=== PATIENT | male | born 1960 | race Caucasian/White ===

== ENCOUNTER 2016-08-27 04:12 | Day surgery (SDC) | payer BC ==
[2016-08-21 17:45] LABS: HEMATOCRIT 42.8 % (40.0-51.0); HEMOGLOBIN 14.4 g/dL (13.6-17.8)
[2016-08-21 17:59] LABS: BUN (BLOOD UREA NITROGEN) 14 MG/DL (6-23); CHLORIDE, SERUM 101 MMOL/L (96-112); GFR AFRICAN AMERICAN 96 ML/MIN (>=60); GFR NON AFRICAN AMERICAN 83 ML/MIN (>=60); POTASSIUM, SERUM 4.4 MMOL/L (3.5-5.3); SODIUM, SERUM 140 MMOL/L (135-148)
[2016-08-21 18:00] LABS: CO2 (CARBON DIOXIDE) 31 MMOL/L (24-34); GLUCOSE, SERUM 75 MG/DL (60-99)
--- NOTE | ~2016-08-27 | OP ---
Record Of Operation [facility] [address] [place]. [address] NAME: VINICIUS NICOLE JR : 58 STATUS : REG [facility] PAT#: [id number] AGE: 56 ADM/REG DATE : 08/27/16 MR#: [id number] REPORT SERV DATE: 08/27/16 DICTATED BY: BASIL RAMOS DATE: 08/27/16 REPORT STATUS : Draft TRANSCRIBED BY: MODL DATE: 08/27/16 DATE OF PROCEDURE: 08/27/2016 PREOPERATIVE DIAGNOSIS: Left medial meniscus re-tear with early degenerative joint disease. POSTOPERATIVE DIAGNOSIS: Left medial meniscus re-tear with early degenerative joint disease, full-thickness chondral defect of tibia and synovitis. PROCEDURE: Left partial medial meniscectomy, chondroplasty of trochlea, synovectomy and chondroplasty of the tibia. SURGEON: Basil Ramos M.D. COMPLICATIONS: None. ANESTHESIA: General endotracheal. INDICATIONS: This 56-year-old male, presented with acute mechanical worsening of medial joint line symptoms. He was found have a displaced meniscal fragment by MRI. He did have a previous meniscectomy. He was of obvious concern for worsening DJD, especially with his size of 270 pounds and some joint space loss. We discussed the risks of that in addition to medical risks of operative and nonoperative treatment. He wished to proceed with operative intervention after discussion of above. DESCRIPTION OF PROCEDURE: The patient was induced in a supine position. Left lower extremity was prepped and draped in a standard surgical fashion. A time-out protocol was enforced. Ancef was administered. Anterolateral portal was created for diagnostic arthroscopy, which revealed full-thickness chondral defect or near full thickness grade 3 chondral loss of 3 x 2 cm area of the trochlea. Medial and lateral gutters were normal. The synovitis of the gutters was copious and debrided. There was some brackish fluid which was extirpated from the knee. ACL and PCL were normal. Mild chondromalacia of the lateral compartment negative for meniscus tear. Medial compartment demonstrated a small full-thickness area of chondral loss on the medial tibia. There was some unstable meniscal body tear. The femoral side was reasonably well preserved. Accessory medial portal was created. The fat pad was taken down. We went up into extension and performed a chondroplasty of the trochlea. There were several unstable flaps which were trimmed to a stable margin. We debrided the synovitis of the anterior knee and of the gutters. We then went down into the medial compartment. A valgus stress was applied. We debrided the meniscus. With shaver and biters, we were able to trim the meniscus back to a stable margin. We performed a chondroplasty on the tibial side and on the femoral side of the lesion. The scope was withdrawn. Portals were closed with Monocryl, Steri-Strips were Record Of Operation [address] [address] NAME: VINICIUS NICOLE JR : 58 STATUS : REG [facility] PAT#: [id number] AGE: 56 ADM/REG DATE : 08/27/16 MR#: [id number] REPORT SERV DATE: 08/27/16 DICTATED BY: BASIL RAMOS. DATE: 08/27/16 REPORT STATUS : Draft TRANSCRIBED BY: MODL DATE: 08/27/16 applied. The patient tolerated the procedure well and was taken to PACU in stable condition. POSTOPERATIVE PLAN: Partial weightbearing for 2 weeks. Lovenox in PACU. Resume anticoagulation. Transition to weightbearing around two weeks. BSS/MODL Basil Ramos M.D. / [id number] CC: Gary Schafer Paul E
[~2016-08-27 04:12] MED LIST: ANTIBIOTIC CREAM TOP; BACDS PO; CARDIZEM; CORDARONE PO; COREG6 PO; CYANO1000T PO; DIOVAN HCT320 MG/25 PO; FLOMAX4 PO; FOLIC PO; GLUCPH PO; K500 PO; LIPITOR20 PO; MAXIMUM D3 PO; PHENTERMINE37.5 M1 PO; SILVADENE1 % TOP; TESTOST CYP200 MG/ML IM; XARELTO20 MG PO
== END 2016-08-27 17:41 | disposition home or self-care (01) ==
LOC: SDC 04:12
PROVIDERS: Orthopaedic Surgery Sports Medicine
PROC: 0SBD4ZZ Excision of Left Knee Joint, Percutaneous Endoscopic Approach (ICD-10-PCS; principal; 2016-08-27 05:45)
DX: S83.232A Complex tear of medial meniscus, current injury, left knee, initial encounter (principal); M17.12 Unilateral primary osteoarthritis, left knee; I48.91 Unspecified atrial fibrillation; Z79.01 Long term (current) use of anticoagulants; I10 Essential (primary) hypertension; G47.33 Obstructive sleep apnea (adult) (pediatric); Z86.718 Personal history of other venous thrombosis and embolism; Z86.711 Personal history of pulmonary embolism; G62.9 Polyneuropathy, unspecified; L30.9 Dermatitis, unspecified; Z79.84 Long term (current) use of oral hypoglycemic drugs; Z90.89 Acquired absence of other organs; Z98.890 Other specified postprocedural states
CPT/HCPCS: 80048; 82962; 85014; 85018; 93005; J0690; J2250; J2274; J2405; J2710; J3010